=== PATIENT | male | born 1960 | race Caucasian/White ===

== ENCOUNTER 2019-07-24 05:56 | Emergency (ER) | payer OTHER ==
[~2019-07-24] VITALS: Ht 180.3 cm; Wt 90.7 kg
[~2019-07-24 05:56] MED LIST: NOHOMEMEDICATIONS; PERCOCET 5-3251 EACH PO; TAMSULOSIN HCL0.4 MG PO
[2019-07-24 06:32] LABS: ABSOLUTE EOSINOPHILS 0.2 thou/uL (0.0-0.7); ABSOLUTE LYMPHOCYTES 1.1 thou/uL (0.8-5.3); ABSOLUTE MONOCYTES 0.6 thou/uL (0.0-1.2); BASOPHILS 0.6 %; EOSINOPHILS 2.7 %; HEMATOCRIT 41.3 % (42.0-52.0); HEMOGLOBIN 14.3 gm/dL (14.0-18.0); LYMPHOCYTES 13.2 %; MCH 31.5 pg (26.0-34.0); MCHC 34.7 g/dL (28.0-37.0); MCV 90.8 fL (80.0-100.0); MONOCYTES 7.7 %; NUCLEATED RBCS 0 /100WBC; PLATELET COUNT* 223 thou/uL (150-400); POLYS 75.8 %; RBC 4.55 mil/uL (4.50-6.00); RDW-CV 12.7 % (10.5-14.5); WBC 7.9 thou/uL (4.0-11.0)
[2019-07-24 06:47] LABS: CALCIUM 8.3 mg/dL (8.5-10.1); CREATININE 1.1 mg/dL (0.6-1.3)
[2019-07-24 06:51] LABS: ALBUMIN 3.3 g/dL (3.4-5.0); TOTAL BILIRUBIN 0.6 mg/dL (<0.1-1.0); TOTAL PROTEIN 7.1 g/dL (6.4-8.2)
[2019-07-24] MEDS ORDERED: CARAFATE 1 GM TA1 G1 PO (07:21)
[2019-07-24] MEDS ORDERED: ZOFRAN ODT4 MG SUBLING (07:23)
[2019-07-24 07:25] VITALS: BP 146/90
--- NOTE | 2019-07-24 13:30 | EKG ---
[place] [address] ELECTROCARDIOGRAM REPORT Name: INDIRA MANUEL Room: [facility]#: [id number] Admission: 07/24/19 Attend Phys: Discharge: 07/24/19 Date of : 58 Date of Service: 07/24/19613 Report #: [id number] THIS REPORT FOR: //name// [facility] ED Test Date: 2019-07-24 Test Time: 06:14:20 Pat Name: INDIRA MANUEL Department: Room: Gender: Floral Department Specialist: [facility] : 1960 Requested By: Myriam Alcala Order Number: [id number] MD: Darwin Carrion Measurements Intervals [place] Rate: 84 P: 73 [place]: 147 QRS: 37 QRSD: 91 T: 40 QT: 365 QTc: 432 Interpretive Statements Sinus rhythm No previous ECG available for comparison Electronically Signed On 07-24-2019 13:28:48 CDT by Darwin Carrion [email or web address] <ELECTRONICALLY SIGNED> By: Darwin Carrion MD, [facility] 07/24/19 1328 3 3 Darwin Carrion MD, FACC /EPI
== END 2019-07-24 07:25 | disposition home or self-care (01) ==
LOC: M.ERS 05:56
PROVIDERS: Emergency Medicine
DX: R51 Headache (principal); K21.9 Gastro-esophageal reflux disease without esophagitis; I10 Essential (primary) hypertension